=== PATIENT | male | born 1950 | race Caucasian/White ===

== ENCOUNTER 2023-05-03 11:45 | Outpatient (CLI) | payer MEDICARE, OTHER, SELFPAY ==
[2023-05-03 13:39] LABS: Anion Gap 8 mmol/L (8-16); Blood Urea Nitrogen 21 mg/dL (9-20); Calcium 9.8 mg/dL (8.4-10.2); Carbon Dioxide 30 mmol/L (22-30); Chloride 99 mmol/L (98-107); Estimated Glomerular Filt Rate > 60; Glucose 112 mg/dL (65-110); INR 1.1; Potassium 4.3 mmol/L (3.4-5.0); Prothrombin Time 14.4 Seconds (11.1-14.7); Sodium 137 mmol/L (137-145)
[2023-05-03 13:40] LABS: Partial Thromboplastin Time 35.8 SECONDS (22.3-36.8)
== END 2023-05-03 11:46 | disposition home or self-care (01) ==
LOC: ANHSURGERY 11:52
PROVIDERS: Anesthesiology; PCP Internal Medicine; Visit Provider Orthopaedic Surgery
DX: Z01.812 Encounter for preprocedural laboratory examination (principal); M16.12 Unilateral primary osteoarthritis, left hip; D69.9 Hemorrhagic condition, unspecified; I10 Essential (primary) hypertension
CPT/HCPCS: 36415; 80048; 80307; 82040; 83036; 85025; 85055; 85610; 85730; 86850; 86900; 86901; 87081

== ENCOUNTER 2023-05-12 01:36 | Day surgery (SDC) | payer MEDICARE, OTHER, SELFPAY ==
[2023-05-03 12:00] VITALS: BMI 36.9
--- NOTE | 2023-05-03 12:31 | PC.NURSE ---
Addendum entered by Niki Bautista RN 05/03/23 12:33: ALL VITAMINS AND SUPPLEMENT 3 DAYS PRE OP.LAST DOSE 05/08/23 Original Note: Report to the Outpatient Waiting Room, entrance under the green pavilion located off [facility], at time __0600 on date _05/12/23 . Planned Procedure Time: _0730 . Time changes happen often and if your time is changed the preop area will call you the afternoon before. - You and your visitor will be asked to self-screen and do not enter if you have any COVID symptoms. - A mask is optional within the hospital at this time. Patients may have clear liquids (water, carbonated beverages, clear teas, apple juice) until 3 hours prior to surgery with a maximum of 20 ounces. - No food from midnight until time of surgery - Infants may have breast milk until 4 hours before surgery, formula 6 hours prior to surgery. - Children will be allowed to drink immediately following surgery. If applicable, please bring a bottle or sippy cup to assist with drinking. Juice, water, soda, and popsicles are readily available. For infants on formula, please bring formula the day of surgery. Pacifiers are allowed. Take the following medications with a SIP of water the morning of surgery: _AMLODIPINE DO NOT STOP ANY OF YOUR OTHER PRESCRIPTION MEDICATIONS PRIOR TO SURGERY ?EXCEPT THE FOLLOWING Medications to discontinue per physician MELOXICAM PER DR CHAVIS. Date to take last dose Please no make-up, nail haitian, hairspray, perfume, deodorant, or body powder the day of surgery. No jewelry (including any body piercings) or valuables the day of surgery, leave them at home. Please take a shower or bath the night before, or the morning of, surgery with an antibacterial soap. Wear comfortable, loose fitting clothing. Children are encouraged to wear pajamas. - Jewelry must be removed prior to entering the operating room. Rings and piercings that are not removed may be cut off. - The hospital will not accept responsibility for valuables. - Please leave all valuables, including medications, at home the day of surgery. If you are going home after surgery, a licensed team cdl driver must drive you home. - NO public transportation without another adult if you receive anesthesia. - We recommend that an adult stay with you for 24 hours following discharge. - We also recommend that you do not drive, make important decision, drink alcoholic beverages, or take any drugs that were not prescribed by your health care provider for at least 24 hours after your discharge time. For Pediatric surgeries, we recommend two adults accompany the child home. Follow any additional instructions given to you from your surgeon. If you or anyone in your household have experienced Covid symptoms in the past week, please notify your surgeon or the nurse liaison at the phone number below for possible testing. VERBAL AND WRITTEN instructions given to __PATIENT AND SHELTON and asked if any additional questions and then verbalized understanding. Patient advised to call surgeon office or pre surgery nurse liaison [phone] if any additional questions.
[2023-05-03 12:54] VITALS: BP 153/87; PULSE 83; RESP 18; TEMP 36.6; O2SAT 100
[2023-05-03 13:31] LABS: Basophils Absolute Auto 0.1 K/mm3 (0.0-0.1); Basophils Percent Auto 1.2 % (0.2-1.2); Eosinophils Absolute Auto 0.1 K/mm3 (0-0.3); Eosinophils Percent Auto 1.2 % (0-4.4); Hematocrit 47.2 % (42.0-52.0); Hemoglobin 15.7 g/dL (14.0-18.0); Immature Granulocyte Absolute 0.02 K/mm3 (0.00-0.031); Immature Granulocyte Percent A 0.3 % (0-0.5); Immature Platelet Fraction Pct 8.8 % (0.9-11.2); Lymphocytes Absolute Auto 2.09 K/mm3 (0.9-3.2); Lymphocytes Percent Auto 32.4 % (18.3-44.2); Mean Corpuscular HGB Conc 33.3 g/dl (32-36); Mean Corpuscular Hemoglobin 30.3 pg (26-34); Mean Corpuscular Volume 90.9 fl (80-100); Mean Platelet Volume 11.3 fl (7.4-10.4); Monocytes Absolute Auto 0.6 K/mm3 (0.1-0.6); Monocytes Percent Auto 9.1 % (2.6-8.5); Neutrophils Absolute Auto 3.6 K/mm3 (1.3-6.7); Neutrophils Percent Auto 55.8 % (45.5-73.1); Platelet Count Result 102 k/mm3 (150-375); Red Blood Count 5.19 M/mm3 (4.6-6.20); Red Cell Distribution Width 13.9 % (11.5-14.5); White Blood Count 6.5 K/mm3 (4.5-10.0)
[2023-05-03 13:36] LABS: Albumin Level 4.9 g/dL (3.5-5.1)
[2023-05-03 13:38] LABS: Urine Cotinine NEGATIVE
[2023-05-03 13:43] LABS: Hemoglobin A1C 5.6 % (<5.7)
--- NOTE | 2023-05-06 15:04 | PM.IMHP ---
H&P: HPI History of Present Illness Date/Time: 05/06/23 15:04 Chief Complaint: The patient is a 73-year-old male who sees Dr. Roberts regarding his left hip. The patient has a chronic ongoing history of pain localized to the groin radiating to the thigh worse with activity somewhat relieved by rest. He has started pain rest pain and night pain cannot stand or walk for long periods. He has had chronic pain for many years. Despite conservative measures including anti-inflammatory medication activity modification and time his symptoms continue. X-rays demonstrate [id number] primary osteoarthritis in the left hip joint. The patient has discussed treatment options in detail with Dr. Roberts he would now like to proceed with left total hip arthroplasty. Review of Systems Review of Systems: Ten point review of systems otherwise negative PMFSH Social History Social History Smoking status: Never smoker Additional smoking assessment comments: DENIES ANY FORM OF TOBACCO USE Living arrangements: with family Spiritual care concerns: No Meds Home Medications and Allergies Home Medications Medication Instructions Recorded Confirmed Type acetaminophen 650 mg 1,300 mg PO Q12H PRN Pain 05/03/23 05/03/23 History tablet,extended release (Tylenol Arthritis Pain) amlodipine 5 mg tablet 5 mg PO QAM 05/03/23 05/03/23 History diphenhydramine HCl 50 mg capsule 50 mg PO HS PRN Insomnia 05/03/23 05/03/23 History hydrochlorothiazide 25 mg tablet 25 mg PO DAILY 05/03/23 05/03/23 History hydrocodone 7.5 mg-acetaminophen 1 tablet PO Q6-12H PRN Pain 05/03/23 05/03/23 History 325 mg tablet melatonin 5 mg tablet 5 mg PO HS PRN Insomnia 05/03/23 05/03/23 History meloxicam 15 mg tablet 15 mg PO DAILY 05/03/23 05/03/23 History omeprazole 20 mg tablet,delayed 20 mg PO DAILY 05/03/23 05/03/23 History release sildenafil 100 mg tablet 100 mg PO PRN PRN Erectile 05/03/23 05/03/23 History Dysfunction Allergies Allergy/AdvReac Type Severity Reaction Status Date / Time No Known Allergies Allergy Verified 05/03/23 12:00 Exam Narrative: on exam the patient is noted be a well-developed well-nourished male no acute distress alert oriented x3. Normal mood and affect. He is 5 ft 6 in tall 239 lb with a BMI 38.6. Hearing and vision are intact. Respiratory is good no distress. Pulse regular rate and rhythm. Abdomen benign. Extremities show the patient's left hip to be painful with manipulation and range of motion he has a positive Stinchfield positive Jenise exam limited internal external rotation. the patient is internal rotation is to internal rotation to 0? external rotation to about 20?. Hip joint is otherwise stable strength is 5 5 neurovascular is intact. Skin is intact. Central nervous system within normal limits. Walks with antalgic gait because of right hip and groin pain. Assessment and Plan Assessment and plan (1) Primary osteoarthritis of left hip: Code(s): M16.12 - Unilateral primary osteoarthritis, left hip Status: Acute Plan by x-ray and exam the patient is noted to have advanced primary osteoarthritis of the left hip joint. The patient has discussed risks benefits limitations and alternatives of surgery in great detail with Dr. Roberts he is now ready to proceed with left total hip arthroplasty. The patient is scheduled to undergo surgery May 12, 2023 at [facility] with Dr. Roberts. The patient voiced understanding and agrees with the above plan.
--- NOTE | 2023-05-11 13:09 | WPDANESEPPF ---
Anes - Initial Pre Proc Eval Procedure: Operation Date: 05/12/23 07:30 Proposed Procedures p Left Total Hip Arthroplasty - Dandy Roberts MD Date/Time: 05/11/23 13:09 Surgeon: Dandy Roberts MD Pre Op Diagnosis: OA left hip Patient Data Age: 73 Gender: M Height: 1.7 m Weight: 106.9 kg Last Vital Signs Temp 97.9 F 05/03/23 12:54 Pulse 83 05/03/23 12:54 Resp 18 05/03/23 12:54 BP 153/87 H 05/03/23 12:54 Pulse Ox 100 05/03/23 12:54 O2 Del Method Room Air 05/03/23 12:54 Allergies Allergy/AdvReac Type Severity Reaction Status Date / Time No Known Allergies Allergy Verified 05/12/23 05:55 Home Medications Medication Instructions Recorded Confirmed Type acetaminophen 650 mg 1,300 mg PO Q12H PRN Pain 05/03/23 05/12/23 History tablet,extended release (Tylenol Arthritis Pain) amlodipine 5 mg tablet 5 mg PO QAM 05/03/23 05/12/23 History diphenhydramine HCl 50 mg capsule 50 mg PO HS PRN Insomnia 05/03/23 05/12/23 History hydrochlorothiazide 25 mg tablet 25 mg PO DAILY 05/03/23 05/12/23 History hydrocodone 7.5 mg-acetaminophen 1 tablet PO Q6-12H PRN Pain 05/03/23 05/12/23 History 325 mg tablet melatonin 5 mg tablet 5 mg PO HS PRN Insomnia 05/03/23 05/12/23 History meloxicam 15 mg tablet 15 mg PO DAILY 05/03/23 05/12/23 History omeprazole 20 mg tablet,delayed 20 mg PO DAILY 05/03/23 05/12/23 History release sildenafil 100 mg tablet 100 mg PO PRN PRN Erectile 05/03/23 05/12/23 History Dysfunction Patient hx anesthesia problems: none Family hx anesthesia problems: none Results Review: All pre-operative results and documents have been reviewed as part of the pre-operative evaluation. [facility] Social History Social History Smoking status: Never smoker Additional smoking assessment comments: DENIES ANY FORM OF TOBACCO USE Living arrangements: with family Spiritual care concerns: No Anes - Eval Final PreProcedure Day of Procedure 05/11/23 13:09 Patient weight: obese Heart: irregular rhythm Lungs: clear to auscultation Airway: Mallampati scale class III Neurological: alert and oriented Last oral intake: >/= 8 hours ASA classification: III Emergent: no Anesthetic plan: proceed Anesthesia type and monitoring: general ETT and standard monitoring Results Review: All pre-operative results and documents have been reviewed as part of the pre-operative evaluation. Informed Consent: The patient's anesthetic plan and its attendant risks and benefits were discussed with the patient/family/POA. Questions were solicited and answers provided to the satisfaction of the patient/family/POA.
[2023-05-12] VITALS (12 sets, daily range): BP systolic 122–153; BP diastolic 65–85; PULSE 64–82; RESP 14–20; TEMP 35.3–37.2; O2SAT 97–100
--- NOTE | ~2023-05-12 | XR_ITS ---
EXAMINATION: XR surgery orthopedic DATE: 05/12/2023 09:10 INDICATION: Intraoperative evaluation during left total hip arthroplasty TECHNIQUE: Frontal view of the left hip was obtained. COMPARISON: None. FINDINGS: Intraoperative image during a left total hip arthroplasty demonstrate placement of an acetabular comp onent affixed with at least 2 screws which appears in near anatomic alignment on the single image pro vided. A femoral broach is in place on the initial 2 images with the proximal tip centered over the acetabular component. This is subsequently replaced with a femoral component to the arthroplasty on t he final image which appears well seated in near-anatomic alignment. Portions of the pelvis are obscu red by a bolster. No fractures in the visualized bones. Expected gas in the soft tissues at the opera tive bed. IMPRESSION: 1. Expected appearance during a left total hip arthroplasty. Reviewed, dictated and finalized at location A.
[2023-05-12] MEDS: ACETAMINOPHEN 500 MG TABLET 1000 MG PO (06:21)
[2023-05-12] MEDS: LACTATED RINGERS 1,000 ML 30 ML IV CONT ×2 (06:21→09:49)
--- NOTE | 2023-05-12 07:04 | WPDHPUPDATE1 ---
History and Physical Update Update Date/Time: 05/12/23 07:04 History and Physical has been reviewed, including an updated exam of the patient. There are NO changes in the patient's condition. Risks, benefits, and alternatives have been discussed and questions answered. Patient agrees to proceed with procedure.
[2023-05-12] MEDS: TRANEXAMIC ACID 1,000MG/ISO100 1,000 MG/100 ML BAG 200 MG IVPB (07:17)
[2023-05-12] MEDS: ceFAZolin 2 GM/D5W 50 ML 2 GM/50 ML BAG IVPB (07:35)
[2023-05-12] MEDS: BUPIVACAINE/EPINEPHRINE 0.5% 50 ML VIAL INFILTRATE (08:25)
--- NOTE | 2023-05-12 09:02 | W.PM.PROC2 ---
Procedure Note - Detailed Date of Procedure 05/12/23 Pre-op Diagnosis Osteoarthritis left hip Post-op Diagnosis Same Procedure Performed LEFT total hip arthroplasty Surgeon Dandy Roberts MD Parachutist/Combatant Diver Qualified Steven Hernandez Anesthesia General Description of Procedure Patient was brought to the operating room and anesthetic was administered. The patient was placed with the Left side up and steriley prepped and draped in the usual manner. Longitudinal incision was done, dissection carried down to the fascia. A Hardinge type approach was used and the femoral head was dislocated anteriorly. Femoral head was removed a finger breath above the lesser trochanter. The acetabulum was serially reamed to accept a 56 component. This was impacted into place and secured with 2 25mm screws. A high wall liner was placed. The femur was reamed and broached to accept a 12 component which was impacted into place. A plus +0 ball and neck were placed and the hip was put through full range of motion. The hip was noted to be stable. The wounds were then closed in a layer fashion using #5 ethibond, 2 vicryl, 2-0 vicryl and christiano. Patient left the operating room in satisfactory condition. Estimated Blood Loss 600 Drains No Packing No Pathology None sent Complications No immediate complications Condition Stable Disposition PACU
[2023-05-12] MEDS: fentaNYL CITRATE INJ (*CRX) 100 MCG/2 ML VIAL 25 MCG IV PUSH ×8 (10:00→10:40)
--- NOTE | 2023-05-12 11:11 | PC.NURSE ---
This patient, Otilio Echols, was received from [PACU] on 05/12/23 at 1100. Patient/family oriented to unit policies and routines. Report from Karolyn
[2023-05-12] MEDS: KCL 20 MEQ/D5/0.45% SOD CHL 1,000 ML 80 ML IV CONT (11:43)
[2023-05-12 11:45] LABS: Hematocrit 43.8 % (42.0-52.0); Hemoglobin 14.7 g/dL (14.0-18.0)
[2023-05-12] MEDS: HYDROcodone/acetaminophen (*CRX) 7.5-325 MG TABLET 1 TAB PO (13:15)
--- NOTE | 2023-05-12 13:33 | ADMGEN ---
This patient, Otilio Echols, was admitted to 3 [facility] Room 307-01. Patient/family oriented to hospital policies and general routines including ID bracelet, bed and alarms, visiting hours, pain management, procedures, bathroom and other care routines, personal items, smoking policy, room service/diet, and visiting hours. Information on how to activate the Rapid Response Team has been discussed. Patient/Family are encouraged to report perceived risks to care and to ask questions if they do not understand what they are told or what they should do. Report from Karolyn.
--- NOTE | 2023-05-12 13:55 | P.OPB_ITS ---
Procedure Note - Brief Procedure Note - Brief Date of procedure: 05/12/23 Preop diagnosis advanced primary osteoarthritis left hip Postop diagnosis same, status post left total hip arthroplasty. Procedure performed: Left total hip arthroplasty Surgeon: Dandy Roberts MD-surgeon Steven Hernandez PA-C -1st office support assistant Description of procedure: Patient was taken to the operating room on May 12, 2023 at [facility]. I entered the room at 7:45am. At that point I assisted with positioning of the patient on the operating table in a lateral decubitus positio n with the left hip up towards the ceiling. hip positioners were placed that were well padded and then I assisted with sterile prep and drape of left lower extremity. Dr. Roberts entered the room and then I assisted with the left total hip arthroplasty throughout the procedure I assisted with wound retraction, hemostasis with suction cautery, positioning of the left lower extremity, placement of left total hip arthroplasty implant as well. Once Dr. Roberts completed the procedure and I assisted with repair of the abductors to the greater trochanter, he then exited the room I proceeded with thorough irrigation of the wound deep to superficial, placement of Surgicel powder and cauterization of any remaining bleeders. And then started with closure of the deep fascial layer using 2. Vicryl, 2. Quill. I then irrigated the wound again placed more Surgicel powder cauterized any remaining bleeders in began with closure of the skin layer with 2-0 Vicryl, 0 Quill and surgical christiano. Then placed a sterile dressing after cleaning the wound with 4 x 4 gauze and tape applied to the left hip. Total blood loss was approximately 700 cc. The patient was in stable condition ready for discharge to recovery room. No intraoperative complications were noted. Patient was expected to spend the night be discharged home tomorrow if in good condition would be observed overnight and pain control measures would be instituted along with getting up to chair and ambulating in therapy. I exited the room at 9:45 a.m..
--- NOTE | 2023-05-12 14:55 | WPDCN ---
Assessment and Plan Assessment and plan (1) Primary osteoarthritis of left hip: Code(s): M16.12 - Unilateral primary osteoarthritis, left hip Status: Acute Assessment and Plan: Postoperative day 0 status post left total hip arthroplasty. Wound care, pain control, DVT prophylaxis deferred to primary service. Check labs in a.m.. (2) Hypertension: Code(s): I10 - Essential (primary) hypertension Status: Acute Assessment and Plan: Blood pressures were reviewed and they have been stable. Check orthostatic vital signs given lightheadedness and dizziness upon standing to work with PT/OT. Antihypertensives will be reviewed and resumed as appropriate. (3) Paroxysmal atrial fibrillation: Code(s): I48.0 - Paroxysmal atrial fibrillation Status: Acute Assessment and Plan: Currently sounds to be in a sinus rhythm. He is not on anticoagulation. Plan Thank you for allowing us to participate in this patient's care. Please do not hesitate to contact us with any questions. HPI Data of Consult Date/Time: 05/12/23 15:30 Requesting Physician: Dandy Roberts MD Consult Narrative Reason for consult: Postoperative medical management. Narrative: This is a very pleasant 73-year-old male with arthritis hypertension, and paroxysmal atrial fibrillation whom the hospitalist service has been consulted for help managing his medical conditions postoperatively. He was admitted today for elective left hip arthroplasty due to ongoing pain despite conservative outpatient treatment. Surgery was performed under general anesthesia with no immediate complications documented and an estimated blood loss of 600 mL. He got up with physical therapy earlier today and felt extremely lightheaded and dizzy with cold sweats and he sat down immediately to avoid passing out. He has not been up and about much since that time. Appetite has been okay and he denies nausea and vomiting. Pain control is fair. As worse he waits it 7/10, currently 4/10 after receiving oral pain medication. He denies paresthesias, skin color, and temperature changes distal to the surgical site. On discharge she is going home with his who is a retired home health nurse. No history of venous thromboembolism. Regarding his chronic conditions, he believes his high blood pressures well controlled and he has not had any recurrence of atrial fibrillation. Review of Systems Review of Systems: Twelve systems were reviewed and are negative except for as per HPI. [facility] Past Medical History Medical History (Updated 05/12/23 @ 17:54 by Katie Ledesma PA-C) Hypertension Melanoma Paroxysmal atrial fibrillation Squamous cell carcinoma of skin Surgical History Surgical History (Updated 05/12/23 @ 17:54 by Katie Ledesma PA-C) History of arthroplasty of left hip (05/12/23) History of arthroplasty of right knee (2020) History of repair of right rotator cuff Family History Family History (Updated 05/12/23 @ 17:54 by Katie Ledesma PA-C) Other Family history non-contributory Social History Social History (Updated 05/12/23 @ 17:54 by Katie Ledesma PA-C) Social History: Surrogate medical decision maker: Lyric Grier, spouse. Code status: Full code. Smoking status: Former smoker Alcohol intake: never Substance use: never Lack of Transportation: No Lack of Food: Never True Current Housing: I Have Housing Concerned About Future Housing: No Difficulty Paying Gas/Electric Bills: No Difficulty Paying for Meds: No Currently Unemployed: No Education: Don't Know Difficulty w/ Childcare or Family Care: No Additional living arrangements comments: Lives with spouse in [place]. Additional occupation/education comments: Retired. Spiritual care concerns: No Meds Home Medications and Allergies Home Medications Medication Instructions Recorded Confirmed Type acetami
[2023-05-12] MEDS: ceFAZolin 1 GM/NS 50 ML 1 GM/50 ML BAG IVPB (15:48)
[2023-05-12] MEDS: SENNA/DOCUSATE SODIUM TABLET 2 TAB PO (16:43)
[2023-05-12] MEDS: oxyCODONE/ACETAMINOPHEN (*CRX) 10-325 MG TABLET 1 TAB PO (19:57)
[2023-05-12] MEDS: RIVAROXABAN 10 MG TABLET PO (19:58)
[2023-05-13 00:25] VITALS: BP 147/76; PULSE 85; RESP 16; TEMP 37.3; O2SAT 98
[2023-05-13] MEDS: ceFAZolin 1 GM/NS 50 ML 1 GM/50 ML BAG IVPB ×2 (00:42→08:15)
[2023-05-13] MEDS: diphenhydrAMINE HCl CAP 25 MG CAPSULE 50 MG PO (01:11)
[2023-05-13 04:25] VITALS: BP 153/81; PULSE 82; RESP 16; TEMP 37.2; O2SAT 97
[2023-05-13] MEDS: oxyCODONE/ACETAMINOPHEN (*CRX) 10-325 MG TABLET 1 TAB PO (04:46)
[2023-05-13 06:51] LABS: Anion Gap 9 mmol/L (8-16); Blood Urea Nitrogen 19 mg/dL (9-20); Calcium 8.9 mg/dL (8.4-10.2); Carbon Dioxide 28 mmol/L (22-30); Chloride 101 mmol/L (98-107); Estimated CRCL calculation 77 ml/min; Estimated Glomerular Filt Rate > 60; Glucose 126 mg/dL (65-110); Magnesium 2.3 mg/dL (1.6-2.3); Potassium 4.4 mmol/L (3.4-5.0); Sodium 138 mmol/L (137-145)
[2023-05-13 06:54] LABS: Basophils Percent Auto 0.3 % (0.2-1.2); Eosinophils Percent Auto 0.1 % (0-4.4); Hematocrit 42.9 % (42.0-52.0); Hemoglobin 14.3 g/dL (14.0-18.0); Immature Granulocyte Absolute 0.08 K/mm3 (0.00-0.031); Immature Granulocyte Percent A 0.5 % (0-0.5); Lymphocytes Absolute Auto 1.94 K/mm3 (0.9-3.2); Lymphocytes Percent Auto 13.2 % (18.3-44.2); Mean Corpuscular HGB Conc 33.3 g/dl (32-36); Mean Corpuscular Hemoglobin 30.4 pg (26-34); Mean Corpuscular Volume 91.1 fl (80-100); Monocytes Absolute Auto 1.9 K/mm3 (0.1-0.6); Monocytes Percent Auto 12.8 % (2.6-8.5); Neutrophils Absolute Auto 10.8 K/mm3 (1.3-6.7); Neutrophils Percent Auto 73.1 % (45.5-73.1); Platelet Count Result 155 k/mm3 (150-375); Red Blood Count 4.71 M/mm3 (4.6-6.20); Red Cell Distribution Width 13.7 % (11.5-14.5); White Blood Count 14.7 K/mm3 (4.5-10.0)
--- NOTE | 2023-05-13 08:00 | PM.IMPN ---
Progress Note: A&P Assessment and Plan (1) Primary osteoarthritis of left hip: Code(s): M16.12 - Unilateral primary osteoarthritis, left hip Status: Acute Assessment and Plan: Postoperative day 1 status post left total hip arthroplasty. Wound care, pain control, DVT prophylaxis deferred to primary service. Check labs in a.m.. (2) Hypertension: Code(s): I10 - Essential (primary) hypertension Status: Acute Assessment and Plan: Blood pressures were reviewed and they have been stable. Check orthostatic vital signs given lightheadedness and dizziness upon standing to work with PT/OT. Antihypertensives will be reviewed and resumed as appropriate. (3) Paroxysmal atrial fibrillation: Code(s): I48.0 - Paroxysmal atrial fibrillation Status: Acute Assessment and Plan: Currently sounds to be in a sinus rhythm. He is not on anticoagulation. Plan Thank you for allowing us to participate in this patient's care. Please do not hesitate to contact us with any questions. Subjective Date/time seen: 05/13/23 08:00 Interval history: HPI is obtained from the chart, This is a very pleasant 73-year-old male with arthritis hypertension, and paroxysmal atrial fibrillation whom the hospitalist service has been consulted for help managing his medical conditions postoperatively. He was admitted today for elective left hip arthroplasty due to ongoing pain despite conservative outpatient treatment. Surgery was performed under general anesthesia with no immediate complications documented and an estimated blood loss of 600 mL. He got up with physical therapy earlier today and felt extremely lightheaded and dizzy with cold sweats and he sat down immediately to avoid passing out. He has not been up and about much since that time. Appetite has been okay and he denies nausea and vomiting. Pain control is fair. As worse he waits it 7/10, currently 4/10 after receiving oral pain medication. He denies paresthesias, skin color, and temperature changes distal to the surgical site. On discharge she is going home with his who is a retired home health nurse. No history of venous thromboembolism. Regarding his chronic conditions, he believes his high blood pressures well controlled and he has not had any recurrence of atrial fibrillation. Review of Systems Review of Systems: Twelve systems were reviewed and are negative except for as per HPI. Objective Data Vital Signs Vital Signs: Vital Signs - 24 hr 05/12/23 09:49 05/12/23 10:00 05/12/23 10:13 Temperature 97.2 F L Pulse Rate 82 71 Respiratory Rate 18 16 Blood Pressure 148/74 H 130/65 Pulse Oximetry 100 100 99 Oxygen Delivery Simple Face Mask Simple Face Mask Room Air Oxygen Flow Rate 6 6 05/12/23 10:15 05/12/23 10:39 05/12/23 11:10 Temperature 95.8 F L Pulse Rate 79 74 81 Respiratory Rate 20 14 14 Blood Pressure 140/85 141/74 H 149/78 H Pulse Oximetry 99 100 100 Oxygen Delivery Room Air Room Air Oxygen Flow Rate 05/12/23 11:25 05/12/23 11:55 05/12/23 12:55 Temperature 96.0 F L 95.6 F L 96.1 F L Pulse Rate 71 64 79 Respiratory Rate 14 14 18 Blood Pressure 141/80 H 122/77 145/78 H Pulse Oximetry 97 97 97 Oxygen Delivery Oxygen Flow Rate 05/12/23 14:50 05/12/23 16:50 05/12/23 20:25 Temperature 96.4 F L 98.9 F Pulse Rate 82 76 Respiratory Rate 20 16 Blood Pressure 147/74 H 146/76 H Pulse Oximetry 99 99 Oxygen Delivery Room Air Oxygen Flow Rate 05/13/23 00:25 05/13/23 04:25 Temperature 99.1 F 98.9 F Pulse Rate 85 82 Respiratory Rate 16 16 Blood Pressure 147/76 H 153/81 H Pulse Oximetry 98 97 Oxygen Delivery Oxygen Flow Rate Intake/Output Intake/Output: Intake & Output 05/10/23 05/11/23 05/12/23 05/13/23 23:59 23:59 23:59 23:59 Intake Total 1400 250 Output Total 800 1200 Balance 600 -950 Meds/Results Medications: Active Medicatio
[2023-05-13] MEDS: amLODIPine BESYLATE 5 MG TABLET PO (08:15)
[2023-05-13 08:16] VITALS: RESP 20; O2SAT 95
[2023-05-13] MEDS: CELECOXIB 200 MG CAPSULE PO (08:16)
[2023-05-13] MEDS: HYDROcodone/acetaminophen (*CRX) 7.5-325 MG TABLET 1 TAB PO ×2 (08:16→13:42)
[2023-05-13] MEDS: hydroCHLOROthiazide 25 MG TABLET PO (08:16)
[2023-05-13 08:25] VITALS: BP 125/73; PULSE 78; RESP 22; O2SAT 94
--- NOTE | 2023-05-13 08:51 | PCPTNOTE ---
Attempted to see patient for PT, however patient was eating breakfast at this time.
[2023-05-13 09:19] VITALS: O2SAT 95
[2023-05-13 12:17] VITALS: BP 123/69; PULSE 78; RESP 22; TEMP 36.1; O2SAT 98
--- NOTE | 2023-05-13 13:03 | P.PNAN_ITS ---
Anes - Prog Note Post-Op Date/Time: 05/13/23 13:03 Cardiovascular status: normal Respiratory status: normal Airway patency: baseline Mental status: baseline Post-Op hydration status: normal Vital Signs: Last Vital Signs Temp 36.1 C L 05/13/23 12:17 Pulse 78 05/13/23 12:17 Resp 22 H 05/13/23 12:17 BP 123/69 05/13/23 12:17 Pulse Ox 98 05/13/23 12:17 O2 Del Method Room Air 05/13/23 09:19 O2 Flow Rate 6 05/12/23 10:00 Pain Score (VAS): 10/16 I/O: Intake & Output 05/12/23 05/13/23 05/13/23 23:59 07:59 15:59 Intake Total 50 300 480 Output Total 800 1200 Balance -750 -900 480 Laboratory Tests 05/13/23 05:54 05/13/23 05:54 05/13/23 05:54 WBC 14.7 H RBC 4.71 Hgb 14.3 Hct 42.9 MCV 91.1 MCH 30.4 MCHC 33.3 RDW 13.7 Plt Count 155 D MPV 11.0 H Immature Gran % (Auto) 0.5 Neut % (Auto) 73.1 Lymph % (Auto) 13.2 L [place] % (Auto) 12.8 H Eos % (Auto) 0.1 Baso % (Auto) 0.3 Lymph # (Auto) 1.94 [place] # (Auto) 1.9 H Eos # (Auto) 0.0 Baso # (Auto) 0.0 Abs Immat Gran (auto) 0.08 H Absolute Neuts (auto) 10.8 H Absolute Nucleated RBC 0.0 Nucleated RBC % 0.0 Sodium 138 Potassium 4.4 Chloride 101 Carbon Dioxide 28 Anion Gap 9 BUN 19 Creatinine 0.90 Estim Creat Clear Calc 77 Estimated GFR > 60 Glucose 126 H Calcium 8.9 Magnesium 2.3 Post-procedural complaints: none Patient Feedback: Patient satisfied with anesthetic care.
--- NOTE | 2023-05-13 15:35 | PM.DS ---
DS: Admitting Diagnosis Discharge Date 05/13/23 Admitting Diagnosis Admitting diagnosis severe primary osteoarthritis left hip joint discharge diagnosis severe primary osteoarthritis left hip joint status post left total hip arthroplasty. DS: Summary Hospital Course Hospital Course: The patient was taken to the operating room on Wednesday05/12/2023 Dr. Roberts performed a left total hip arthroplasty. Postop day 1 after being held overnight for observation and pain control the patient was doing well. Vital signs were stable he was afebrile neurovascularly is intact wound clean and dry calves benign. Tolerated physical therapy well pain was well controlled. No postoperative complications were noted. He was deemed stable for discharge to home with the following discharge instructions. Discharge to home general diet activity as tolerated touchdown weight-bearing left lower extremity with a walker at all times. He would follow hip precautions. Change dressing daily keep the wound clean and dry watch for evidence of drainage or infection. The patient will take aspirin 325 mg b.i.d. x1 month for DVT prophylaxis. He was also discharged with [place] 7.5 mg every 6 hours p.r.n. pain he would also resume his home medications. He will follow up with Dr. Roberts at 2 weeks postop for staple removal and wound recheck. He will do his physical therapy exercises as instructed per the hospital physical therapy daily. The patient is instructed to call the office immediately at [phone] for any problems difficulties or questions. He voiced understanding and agrees with the above plan. Time Spent with Patient Time attestation: Total time spent providing and/or coordinating discharge services: Exam Narrative: Vital signs stable afebrile neurovascular intact wound clean and dry calves benign. Tolerating p.o. well. Alert oriented x3. Normal mood and affect. No acute distress postop day 1. DS: Data Data Completed and Pending Labs on day of discharge: Labs from last 24 hours 05/13/23 05:54 WBC 14.7 H RBC 4.71 Hgb 14.3 Hct 42.9 MCV 91.1 MCH 30.4 MCHC 33.3 RDW 13.7 Plt Count 155 D MPV 11.0 H Immature Gran % (Auto) 0.5 Neut % (Auto) 73.1 Lymph % (Auto) 13.2 L [place] % (Auto) 12.8 H Eos % (Auto) 0.1 Baso % (Auto) 0.3 Lymph # (Auto) 1.94 [place] # (Auto) 1.9 H Eos # (Auto) 0.0 Baso # (Auto) 0.0 Abs Immat Gran (auto) 0.08 H Absolute Neuts (auto) 10.8 H Absolute Nucleated RBC 0.0 Nucleated RBC % 0.0 Sodium 138 Potassium 4.4 Chloride 101 Carbon Dioxide 28 Anion Gap 9 BUN 19 Creatinine 0.90 Estim Creat Clear Calc 77 Estimated GFR > 60 Glucose 126 H Calcium 8.9 Magnesium 2.3 Procedures/Treatments: Left total hip arthroplasty Discharge Plan Discharge Patient Disposition: Home Health Service Discharge Instructions: Per Care Coordination, patient to discharge with [facility] ( [phone]) for PT/OT and custodial services . Agency will call arrange initial visit. Dandy Roberts MD [facility], [place] [address] [place] [id number] POST-OPERATIVE DISCHARGE INSTRUCTIONS TOTAL KNEE ARTHROPLASTY 1. When resting, lie on back with leg elevated above hear to minimize swelling. Significant swelling could indicate a blood clot and if this occurs call the office (or go to the ER) to have a venous ultrasound. 2. Do exercise 5 times a day. 3. Do not sit with leg down except for meals. 4. Wound Care: Nursing will give additional dressings at discharge. Patient to change dressing at home 1 week from surgery, then maintain until seen in office. 5. May shower with dressing in place. 6. Follow weight bearing status instructions. IMPORTANT: Remember not to sit in the chair for more than 30 minutes at a time. As a rule, during the first 14 days after surgery, only sit in the chair to wor
== END 2023-05-13 14:15 | disposition home health service (06) ==
LOC: ANHSURGERY 05:46 → ANH3MEDSUR 11:22
PROVIDERS: PCP Internal Medicine; Visit Provider Orthopaedic Surgery
PROC: (CPT 27130; principal; 2023-05-12 07:30)
DX: M16.12 Unilateral primary osteoarthritis, left hip (principal); G89.29 Other chronic pain; I10 Essential (primary) hypertension; I48.0 Paroxysmal atrial fibrillation; E66.9 Obesity, unspecified; Z68.37 Body mass index [BMI] 37.0-37.9, adult; Z79.891 Long term (current) use of opiate analgesic; Z85.828 Personal history of other malignant neoplasm of skin; Z87.891 Personal history of nicotine dependence
CPT/HCPCS: 27130; 36415; 80048; 83735; 85014; 85018; 85025; 97110; 97116; 97161; 97165; 97530; 97535; 99199; A9270; C1776; J0690; J1100; J1170; J2250; J2405; J2704; J3010; J3370; J3480; J7120